=== PATIENT | female | born 1990 | race Caucasian/White ===

== ENCOUNTER → 2018-09-21 19:27 | Outpatient (CLI) | payer SELFPAY ==
--- NOTE | 2018-09-21 19:20 | NUR ---
PT ARRIVES VIA EMS STRETCHER, 28 YR OLD GRAVID PT UNKNOWN GESTATION-PT STATES "AROUND 6 MONTHS ", DENIES VAGINAL BLEEDING, REPORTS HITTING ABDOMEN AND HEARING VOICES "THEY JUST WON'T STOP YELLING AT ME." ALSO REPORTS BEING SEEN IN INDUSTRY ER LAST NIGHT AND RELEASED WITHOUT TREATMENT. PT YELLING OUT IN ROOM, Trupti SOOD RN CONTACTS DR BUTT WHO STATES TO SEND PT TO ER PT UNSTABLE, ORDERS RECEIVED FOR ULTRASOUND FOR BPP, GESTATIONAL AGE/GROWTH, UDS, REQUESTS PORTABLE FHR MONITOR. NOTIFIED DALE PIPERQUITLINE COUNSELOR, WHO STATES TO SEND PT TO ER FOR EVAL FOR STABILIZATION.
--- NOTE | 2018-09-21 19:45 | NUR ---
PT TRANSFERRED VIA WC TO ER FOR EVALUATION, REPORT GIVEN TO ER NURSE. URINE TAKEN TO LAB FOR ORDERED UDS.
[2018-09-21 20:18] LABS: UDS - AMPHET POSITIVE QUAL (NEGATIVE); UDS - BARB NEGATIVE QUAL (NEGATIVE); UDS - BENZO NEGATIVE QUAL (NEGATIVE); UDS - COCAINE NEGATIVE QUAL (NEGATIVE); UDS - OPIATE NEGATIVE QUAL (NEGATIVE); UDS - PCP NEGATIVE QUAL (NEGATIVE); UDS - THC NEGATIVE QUAL (NEGATIVE)
== END | disposition home or self-care (01) ==
LOC: D.LDO 19:27
PROVIDERS: Obstetrics & Gynecology
DX: O26.899 Other specified pregnancy related conditions, unspecified trimester (principal); Z3A.00 Weeks of gestation of pregnancy not specified

== ENCOUNTER 2018-09-21 19:51 | Emergency (ER) | payer MEDICAID ==
[~2018-09-21] VITALS: Ht 167.6 cm; Wt 93.2 kg
[2018-09-21 20:04] VITALS: Ht 167.6 cm; Wt 93.2 kg
[2018-09-21 20:44] LABS: BASOPHILS 0.2 % (0-2); EOSINOPHILS 1.1 % (0-7); HEMATOCRIT 33.9 % (36.0-48.0); HEMOGLOBIN 11.3 g/dL (12-16); IMMATURE GRANULOCYTES 0.5 % (0-5); LYMPHOCYTES 24.6 % (15-50); MCH 30.1 pg (26.0-34.0); MCHC 33.3 g/dL (31.0-37.0); MCV 90.4 fL (80.0-100.0); MEAN PLATELET VOLUME 9.6 fL (7.4-10.4); MONOCYTES 7.4 % (2-11); NEUTROPHILS 66.2 % (40-80); PLATELET COUNT 304 10x3/uL (130-400); RBC 3.75 10x6/uL (4.00-5.40); RDW 13.2 % (11.5-14.5); WBC 11.8 10x3/uL (4.8-10.8)
[2018-09-21 21:09] LABS: ALBUMIN 2.3 g/dL (3.4-5.0); ALKALINE PHOSPHATASE 91 U/L (46-116); ALT (SGPT) 12 U/L (10-68); BILIRUBIN - TOTAL 0.16 mg/dL (0.2-1.3); CALC OSMOLALITY 273 mosm/kg (275-300); CALCIUM 7.8 mg/dL (8.5-10.1); CARBON DIOXIDE 23.9 mmol/L (21.0-32.0); CHLORIDE - SERUM 107 mmol/L (98-107); CREATININE - SERUM 0.5 mg/dL (0.6-1.3); GLUCOSE 76 mg/dL (74-106); POTASSIUM - SERUM 3.6 mmol/L (3.5-5.1); PROTEIN - SERUM 5.8 g/dL (6.4-8.2); SODIUM 139 mmol/L (136-145); UREA NITROGEN 4 mg/dL (7-18); eGFR NON AFRICAN AMERICAN > 90 mL/min (90-120)
[2018-09-21 21:14] LABS: UDS - AMPHET POSITIVE QUAL (NEGATIVE); UDS - BARB NEGATIVE QUAL (NEGATIVE); UDS - BENZO NEGATIVE QUAL (NEGATIVE); UDS - COCAINE NEGATIVE QUAL (NEGATIVE); UDS - OPIATE NEGATIVE QUAL (NEGATIVE); UDS - PCP NEGATIVE QUAL (NEGATIVE); UDS - THC NEGATIVE QUAL (NEGATIVE)
[2018-09-21 21:14] LABS: APPEARANCE CLEAR (CLEAR); BILIRUBIN NEGATIVE (NEGATIVE); COLOR YELLOW (YELLOW); GLUCOSE NEGATIVE (NEGATIVE); KETONE LARGE mg/dL (NEGATIVE); NITRITE NEGATIVE (NEGATIVE); PROTEIN TRACE mg/dL (NEGATIVE); SPECIFIC GRAVITY 1.025 (1.005-1.020); UROBILINOGEN NORMAL (NORMAL)
[2018-09-21 21:17] LABS: RED CELLS - URINE 0-5 /hpf (0-5); WHITE CELLS - URINE 0-5 /hpf (0-5)
[2018-09-21 21:21] LABS: MUCUS <1+ /lpf (NONE SEEN)
[2018-09-21 23:58] VITALS: BP 138/79
== END 2018-09-22 ==
LOC: D.ER 19:51
PROVIDERS: Family Medicine
DX: O99.342 Other mental disorders complicating pregnancy, second trimester (principal); Z3A.26 26 weeks gestation of pregnancy; R44.0 Auditory hallucinations; Z86.59 Personal history of other mental and behavioral disorders; F19.10 Other psychoactive substance abuse, uncomplicated

== ENCOUNTER → 2018-12-21 10:40 | Outpatient (CLI) | payer MEDICAID ==
[2018-09-21 20:04] VITALS: BMI 33.1
[2018-12-21 12:36] LABS: UDS - AMPHET NEGATIVE QUAL (NEGATIVE); UDS - BARB NEGATIVE QUAL (NEGATIVE); UDS - BENZO NEGATIVE QUAL (NEGATIVE); UDS - COCAINE NEGATIVE QUAL (NEGATIVE); UDS - OPIATE NEGATIVE QUAL (NEGATIVE); UDS - PCP NEGATIVE QUAL (NEGATIVE); UDS - THC POSITIVE QUAL (NEGATIVE)
[2018-12-21 15:34] LABS: HEMATOCRIT 33.5 % (36.0-48.0); MCH 29.3 pg (26.0-34.0); MCHC 32.8 g/dL (31.0-37.0); MCV 89.3 fL (80.0-100.0); MEAN PLATELET VOLUME 10.1 fL (7.4-10.4); RBC 3.75 10x6/uL (4.00-5.40); WBC 11.3 10x3/uL (4.8-10.8)
[2018-12-22 07:18] LABS: RAPID PLASMA REAGIN Non Reactive (Non Reactive)
[2018-12-22 11:12] LABS: RUBELLA IGG 1.22 index (Immune >0.99)
[2018-12-22 13:11] LABS: HEPATITIS C ANTIBODY <0.1 S/CO RAT (0.0-0.9)
[2018-12-23 17:08] LABS: HGB SOLUBILITY (SICKLE SCREEN) Negative (Negative)
== END | disposition home or self-care (01) ==
LOC: D.LDO 10:40
PROVIDERS: ATTEND Obstetrics & Gynecology
DX: O21.9 Vomiting of pregnancy, unspecified (principal); Z3A.39 39 weeks gestation of pregnancy

== ENCOUNTER 2019-02-01 10:31 | Emergency (ER) | payer MEDICAID ==
[2019-02-01 10:50] VITALS: BMI 21.0
--- NOTE | 2019-02-01 10:50 | NUR ---
PT'S NURSE PRESENT UPON ARRIVAL FOR SUICIDE ASSESSMENT. DR. GARCIA NOTIFIED AND 1:1 SITTER OBSERVATION ORDERED. SITTER AT BEDSIDE. NOTIFIED CHARGE NURSE AND ATTENDING IN REGARDS TO ASSESSMENT FINDINGS. RESOURCES GIVEN TO PT AND SAFETY PLAN INITIATED.
[2019-02-01] MEDS ORDERED: HALDOL5 MG PO (11:07)
[2019-02-01] MEDS ORDERED: TRAZODONE HCL150 MG PO (11:07)
[2019-02-01] MEDS ORDERED: ZOLOFT50 MG PO (11:08)
[2019-02-01] MEDS ORDERED: BENZTROPINE MESY1 MG PO (11:08)
[2019-02-01] MEDS ORDERED: TRILEPTAL300 MG PO (11:09)
[2019-02-01 11:18] LABS: UDS - AMPHET NEGATIVE QUAL (NEGATIVE); UDS - BARB NEGATIVE QUAL (NEGATIVE); UDS - BENZO NEGATIVE QUAL (NEGATIVE); UDS - COCAINE NEGATIVE QUAL (NEGATIVE); UDS - OPIATE NEGATIVE QUAL (NEGATIVE); UDS - PCP NEGATIVE QUAL (NEGATIVE); UDS - THC NEGATIVE QUAL (NEGATIVE)
[2019-02-01 11:20] LABS: BASOPHILS 0.3 % (0-2); EOSINOPHILS 2.6 % (0-7); HEMATOCRIT 38.4 % (36.0-48.0); HEMOGLOBIN 12.5 g/dL (12-16); IMMATURE GRANULOCYTES 0.1 % (0-5); LYMPHOCYTES 30.5 % (15-50); MCH 28.7 pg (26.0-34.0); MCHC 32.6 g/dL (31.0-37.0); MCV 88.3 fL (80.0-100.0); MEAN PLATELET VOLUME 9.7 fL (7.4-10.4); MONOCYTES 8.3 % (2-11); NEUTROPHILS 58.2 % (40-80); PLATELET COUNT 283 10x3/uL (130-400); RBC 4.35 10x6/uL (4.00-5.40); RDW 13.8 % (11.5-14.5)
[2019-02-01 11:22] LABS: APPEARANCE HAZY (CLEAR); BACTERIA MODERATE /hpf (NONE SEEN); BILIRUBIN NEGATIVE (NEGATIVE); COLOR YELLOW (YELLOW); EPITHELIAL CELLS 0-5 /hpf (0-5); GLUCOSE NEGATIVE (NEGATIVE); KETONE NEGATIVE (NEGATIVE); MUCUS <1+ /lpf (NONE SEEN); NITRITE NEGATIVE (NEGATIVE); PROTEIN NEGATIVE (NEGATIVE); RED CELLS - URINE RARE /hpf (0-5); UROBILINOGEN NORMAL (NORMAL); WHITE CELLS - URINE 0-5 /hpf (0-5)
[2019-02-01 11:34] LABS: ALKALINE PHOSPHATASE 130 U/L (46-116); ALT (SGPT) 24 U/L (10-68); BILIRUBIN - TOTAL 0.16 mg/dL (0.2-1.3); CALC OSMOLALITY 274 mosm/kg (275-300); CALCIUM 8.4 mg/dL (8.5-10.1); CARBON DIOXIDE 32.5 mmol/L (21.0-32.0); CHLORIDE - SERUM 102 mmol/L (98-107); CREATININE - SERUM 0.9 mg/dL (0.6-1.3); GLUCOSE 95 mg/dL (74-106); MAGNESIUM - SERUM 1.9 mg/dL (1.8-2.4); POTASSIUM - SERUM 4.3 mmol/L (3.5-5.1); PROTEIN - SERUM 6.2 g/dL (6.4-8.2); SODIUM 138 mmol/L (136-145); UREA NITROGEN 10 mg/dL (7-18); eGFR NON AFRICAN AMERICAN 80 mL/min (90-120)
[2019-02-01 12:15] VITALS: BP 101/56
[2019-02-01 13:47] LABS: HCG SERUM NEGATIVE (NEGATIVE)
== END 2019-02-01 18:30 ==
LOC: D.ER 10:31
PROVIDERS: Family Medicine
DX: R45.851 Suicidal ideations (principal); R44.0 Auditory hallucinations; A59.9 Trichomoniasis, unspecified

== ENCOUNTER 2019-03-03 02:23 | Emergency (ER) | payer OTHER ==
[~2019-03-03] VITALS: Ht 167.6 cm; Wt 72.7 kg
[~2019-03-03 02:23] MED LIST: BENZTROPINE MESY1 MG PO; HALDOL5 MG PO; TRAZODONE HCL150 MG PO; TRILEPTAL300 MG PO; ZOLOFT50 MG PO
[2019-03-03 02:29] VITALS: Ht 167.6 cm; Wt 72.7 kg
[2019-03-03 02:55] LABS: BASOPHILS 0.3 % (0-2); EOSINOPHILS 1.2 % (0-7); HEMATOCRIT 33.3 % (36.0-48.0); HEMOGLOBIN 11.1 g/dL (12-16); IMMATURE GRANULOCYTES 0.2 % (0-5); LYMPHOCYTES 30.6 % (15-50); MCH 28.9 pg (26.0-34.0); MCHC 33.3 g/dL (31.0-37.0); MCV 86.7 fL (80.0-100.0); MONOCYTES 16.8 % (2-11); NEUTROPHILS 50.9 % (40-80); PLATELET COUNT 254 10x3/uL (130-400); RBC 3.84 10x6/uL (4.00-5.40); RDW 14.1 % (11.5-14.5); WBC 6.6 10x3/uL (4.8-10.8)
[2019-03-03 03:12] LABS: ALBUMIN 3.2 g/dL (3.4-5.0); ALKALINE PHOSPHATASE 122 U/L (46-116); ALT (SGPT) 18 U/L (10-68); BILIRUBIN - TOTAL 0.28 mg/dL (0.2-1.3); CALC OSMOLALITY 281 mosm/kg (275-300); CALCIUM 8.3 mg/dL (8.5-10.1); CARBON DIOXIDE 27.3 mmol/L (21.0-32.0); CHLORIDE - SERUM 106 mmol/L (98-107); CREATINE KINASE 156 UL (21-215); CREATININE - SERUM 0.7 mg/dL (0.6-1.3); GLUCOSE 110 mg/dL (74-106); POTASSIUM - SERUM 3.6 mmol/L (3.5-5.1); PROTEIN - SERUM 6.4 g/dL (6.4-8.2); SODIUM 141 mmol/L (136-145); UREA NITROGEN 12 mg/dL (7-18); eGFR NON AFRICAN AMERICAN > 90 mL/min (90-120)
[2019-03-03 04:12] LABS: HCG URINE NEGATIVE (NEGATIVE)
[2019-03-03 04:13] LABS: UDS - AMPHET POSITIVE QUAL (NEGATIVE); UDS - BARB NEGATIVE QUAL (NEGATIVE); UDS - BENZO NEGATIVE QUAL (NEGATIVE); UDS - COCAINE NEGATIVE QUAL (NEGATIVE); UDS - OPIATE NEGATIVE QUAL (NEGATIVE); UDS - PCP NEGATIVE QUAL (NEGATIVE); UDS - THC POSITIVE QUAL (NEGATIVE)
[2019-03-03 04:28] LABS: COLOR YELLOW (YELLOW)
[2019-03-03 04:29] LABS: APPEARANCE CLOUDY (CLEAR); BILIRUBIN NEGATIVE (NEGATIVE); GLUCOSE NEGATIVE (NEGATIVE); KETONE NEGATIVE (NEGATIVE); NITRITE NEGATIVE (NEGATIVE); PROTEIN 2+ mg/dL (NEGATIVE); SPECIFIC GRAVITY 1.025 (1.005-1.020); UROBILINOGEN NORMAL (NORMAL)
[2019-03-03 04:30] LABS: BACTERIA MANY /hpf (NONE SEEN); EPITHELIAL CELLS 0-5 /hpf (0-5)
[2019-03-03 07:50] VITALS: BP 127/84
== END 2019-03-03 09:55 ==
LOC: D.ER 02:23
PROVIDERS: Family Medicine
DX: F23 Brief psychotic disorder (principal); F19.10 Other psychoactive substance abuse, uncomplicated; N39.0 Urinary tract infection, site not specified